=== PATIENT | male | born 1980 | race Two or more races ===

== ENCOUNTER 2017-03-05 05:28 | Emergency (ER) | payer MEDICAID ==
[~2017-03-05] VITALS: Ht 180.3 cm; Wt 81.6 kg
[2017-03-05 05:39] VITALS: BP 127/86
== END 2017-03-05 06:28 | disposition left against medical advice (07) ==
LOC: ER 05:38
DX: Z76.1 Encounter for health supervision and care of foundling (principal); Z53.21 Procedure and treatment not carried out due to patient leaving prior to being seen by health care provider
CPT/HCPCS: 74176